=== PATIENT | male | born 1980 | race Two or more races ===

== ENCOUNTER 2017-04-20 13:10 | Emergency (ER) | payer SELFPAY ==
[~2017-04-20] VITALS: Ht 165.1 cm; Wt 76.0 kg
[2017-04-20 13:18] VITALS: BP 150/85
[2017-04-20] MEDS ORDERED: ONDANSETRON ODT 4 MG PO ONE (14:00)
[2017-04-20] MEDS ORDERED: LORazepam 1MG TABLET PO ONE (14:00)
[2017-04-20] MEDS ORDERED: ONDANSETRON ODT 4 MG ONE (14:12)
[2017-04-20] MEDS ORDERED: LORazepam 1MG TABLET ONE (14:12)
== END 2017-04-20 14:56 | disposition home or self-care (01) ==
LOC: ED 14:45
DX: F10.10 Alcohol abuse, uncomplicated (principal); F19.10 Other psychoactive substance abuse, uncomplicated; F41.9 Anxiety disorder, unspecified; I10 Essential (primary) hypertension
CPT/HCPCS: 99283; Q0162

== ENCOUNTER 2017-12-19 13:37 | Emergency (ER) | payer SELFPAY ==
[~2017-12-19] VITALS: Ht 165.1 cm; Wt 80.0 kg
[2017-12-19] MEDS ORDERED: LORazepam 2 MG/ML, 1ML IVPush PRN (14:30)
[2017-12-19] MEDS ORDERED: SODIUM CHLORIDE FLUSH 10ML SYR IVF ONE (14:30)
[2017-12-19] MEDS ORDERED: PLEASE ENTER HEIGHT AND WEIGHT MC SCH (14:30)
[2017-12-19] MEDS ORDERED: ONDANSETRON ODT 4 MG PO ONE (14:30)
[2017-12-19] MEDS ORDERED: THIAMINE 100MG TABLET PO ONE (14:30)
[2017-12-19 14:37] LABS: ANION GAP 14 mmol/L (5-15); CALCIUM 8.5 mg/dL (8.5-10.1); CHLORIDE 94 mmol/L (98-107); CREATININE 0.93 mg/dL (0.7-1.3)
[2017-12-19 14:38] LABS: ALANINE AMINOTRANSFERASE 243 U/L (12-78); ALBUMIN 3.7 g/dL (3.4-5.0)
[2017-12-19 14:40] LABS: ALKALINE PHOSPHATASE 112 U/L (45-117); BILIRUBIN,TOTAL 3.3 mg/dL (0.2-1.0); TOTAL PROTEIN 8.6 g/dL (6.4-8.2)
[2017-12-19 14:43] LABS: MEAN CORPUSCULAR HEMOGLOBIN 31.1 pg (27.5-34.5); MEAN CORPUSCULAR HGB CONC 34.3 g/dL (33.2-36.2); MEAN CORPUSCULAR VOLUME 90.7 fL (81-97); PLATELET COUNT 88 x10^3/uL (130-400); RED BLOOD COUNT 4.95 x10^6/uL (4.38-5.82); RED CELL DISTRIBUTION WIDTH 17.1 % (9.4-14.8)
[2017-12-19] MEDS ORDERED: THIAMINE 100MG TABLET ONE (14:55)
[2017-12-19] MEDS ORDERED: ONDANSETRON ODT 4 MG ONE (14:56)
[2017-12-19] MEDS ORDERED: LORazepam 2 MG/ML, 1ML ONE (14:56)
[2017-12-19 15:01] LABS: BASOPHILS % (AUTO) 0 % (0-1); EOSINOPHILS # (AUTO) 0.01 x10^3/uL (0-0.4); EOSINOPHILS % (AUTO) 0 % (1-7); LYMPHOCYTES # (AUTO) 0.22 x10^3/uL (1-3.4); LYMPHOCYTES % (AUTO) 8 % (22-44); MD SCAN; MONOCYTES % (AUTO) 7 % (2-9); NEUTROPHILS # (AUTO) 2.46 x10^3/uL (1.8-6.8); NEUTROPHILS % (AUTO) 85 % (42-75)
[2017-12-19 15:05] VITALS: BP 146/93
== END 2017-12-19 18:08 | disposition home or self-care (01) ==
LOC: ED 18:02
DX: R56.9 Unspecified convulsions (principal); I10 Essential (primary) hypertension; K70.10 Alcoholic hepatitis without ascites; F10.20 Alcohol dependence, uncomplicated
CPT/HCPCS: 36415; 70450; 80053; 85025; 93005; 96374; 99285; J2060; Q0162

== ENCOUNTER 2018-05-10 16:10 | Emergency (ER) | payer SELFPAY ==
[~2018-05-10] VITALS: Ht 165.1 cm; Wt 74.9 kg
[2018-05-10 16:16] VITALS: BP 118/76
[2018-05-10 16:45] LABS: BASOPHILS # (AUTO) 0.02 x10^3/uL (0-0.1); BASOPHILS % (AUTO) 0 % (0-1); EOSINOPHILS # (AUTO) 0.09 x10^3/uL (0-0.4); EOSINOPHILS % (AUTO) 1 % (1-7); LYMPHOCYTES % (AUTO) 22 % (22-44); MD NO; MEAN CORPUSCULAR HEMOGLOBIN 30.6 pg (27.5-34.5); MEAN CORPUSCULAR HGB CONC 34.2 g/dL (33.2-36.2); MEAN CORPUSCULAR VOLUME 89.6 fL (81-97); MEAN PLATELET VOLUME 7.6 fL (7.4-10.4); MONOCYTES # (AUTO) 1.05 x10^3/uL (0.2-0.8); MONOCYTES % (AUTO) 8 % (2-9); NEUTROPHILS # (AUTO) 8.88 x10^3/uL (1.8-6.8); NEUTROPHILS % (AUTO) 69 % (42-75); PLATELET COUNT 260 x10^3/uL (130-400); RED CELL DISTRIBUTION WIDTH 13.9 % (9.4-14.8)
[2018-05-10 16:56] LABS: ALBUMIN 4.2 g/dL (3.4-5.0); ANION GAP 10 mmol/L (5-15); CALCIUM 9.2 mg/dL (8.5-10.1); CHLORIDE 103 mmol/L (98-107); CREATININE 0.81 mg/dL (0.7-1.3)
[2018-05-10 17:05] LABS: CULTURE INDICATED? YES; MICROSCOPIC INDICATED
[2018-05-10] MEDS ORDERED: CEFTRIAXONE 250 MG ONE (17:13)
[2018-05-10] MEDS ORDERED: AZITHROMYCIN 250 MG TABLET ONE (17:13)
[2018-05-10] MEDS ORDERED: CEFTRIAXONE 250 MG IM ONE (17:30)
[2018-05-10] MEDS ORDERED: AZITHROMYCIN 250 MG TABLET PO ONE (17:30)
== END 2018-05-10 17:50 | disposition home or self-care (01) ==
LOC: ED 17:00
DX: A56.01 Chlamydial cystitis and urethritis (principal); I10 Essential (primary) hypertension
CPT/HCPCS: 36415; 80048; 81001; 82040; 85025; 87086; 87491; 87591; 96372; 99283; J0696